=== PATIENT | male | born 1965 | race Caucasian/White ===

== ENCOUNTER 2019-03-14 15:57 | Emergency (ER) | payer MEDICARE, MEDICAID ==
[~2019-03-14] VITALS: Ht 177.8 cm; Wt 73.2 kg
[~2019-03-14 15:57] MED LIST: AMA100C PO; ARIP5TAB4 PO; CLON-528 PO; LEVO200T8 PO; LITH300T3 PO; MIRT45TA83 PO; PYRI100T2 PO
[2019-03-14 16:15] VITALS: BP 128/75
[2019-03-14] MEDS ORDERED: aspirin 325mg tablet PO ONE (16:50)
[2019-03-14 17:52] LABS: BASOPHILS # (AUTO) 0.1 X10'3 (0-0.2); BASOPHILS % (AUTO) 0.9 % (0-1); EOSINOPHILS # (AUTO) 0.3 X10'3 (0-0.9); HEMOGLOBIN 14.5 g/dl (14.0-17.9); LYMPHOCYTES # (AUTO) 2.1 X10'3 (1.1-4.8); MONOCYTES # (AUTO) 0.6 X10'3 (0-0.9); NEUTROPHILS # (AUTO) 8.2 X10'3 (1.8-7.7); NEUTROPHILS % (AUTO) 72.3 % (42-75)
[2019-03-14 17:54] LABS: EOSINOPHILS % (AUTO) 2.9 % (0-6); HEMATOCRIT 43.4 % (42.0-52.0); LYMPHOCYTES % (AUTO) 18.8 % (21-51); MEAN CORPUSCULAR HEMOGLOBIN 34.2 PG (27.0-31.0); MEAN CORPUSCULAR HGB CONC 33.5 g/dL (33.0-36.5); MEAN PLATELET VOLUME 8.3 FL (7.4-10.4); MONOCYTES % (AUTO) 5.1 % (2-12); PLATELET COUNT 203 X10'3 (140-440); RED BLOOD COUNT 4.26 X10'6 (4.70-6.10); RED CELL DISTRIBUTION WIDTH 13.5 % (11.5-14.5); WHITE BLOOD COUNT 11.4 X10'3 (4.5-11.0)
[2019-03-14 18:09] LABS: PARTIAL THROMBOPLASTIN TIME 24 SECONDS (22-32)
[2019-03-14 19:07] LABS: ALANINE AMINOTRANSFERASE 30 U/L (12-78); ALBUMIN 4.1 G/DL (3.4-5.0); ALBUMIN/GLOBULIN RATIO 1.3 (1.1-1.5); ALKALINE PHOSPHATASE 107 IU/L (46-116); ANION GAP 9 (8-16); ASPARTATE AMINO TRANSFERASE 11 U/L (10-37); BILIRUBIN,TOTAL 0.4 MG/DL (0.1-1.0); BLOOD UREA NITROGEN 14 MG/DL (7-18); BUN/CREATININE RATIO 13.6 (5.4-32.0); CALCIUM 9.7 MG/DL (8.5-10.1); CHLORIDE 106 MMOL/L (99-107); CREATININE 1.03 MG/DL (0.60-1.10); GLUCOSE 144 MG/DL (70-104); POTASSIUM 4.3 MMOL/L (3.5-5.1); SODIUM 140 MMOL/L (135-145); TOTAL CARBON DIOXIDE 24.8 MMOL/L (24-32); TOTAL PROTEIN 7.3 G/DL (6.4-8.2); eGFR 75 ML/MIN
== END 2019-03-14 19:41 | disposition home or self-care (01) ==
LOC: ER 15:58
DX: H53.8 Other visual disturbances (principal); E11.9 Type 2 diabetes mellitus without complications; E03.9 Hypothyroidism, unspecified
CPT/HCPCS: 36415; 70450; 80053; 85025; 85610; 85651; 85730; 99284

== ENCOUNTER 2020-06-27 13:23 | Emergency (ER) | payer MEDICARE, MEDICAID ==
[~2020-06-27] VITALS: Ht 175.3 cm; Wt 65.0 kg
[~2020-06-27 13:23] MED LIST changes: +ARIP5TAB14 PO; -ARIP5TAB4 PO; +PYRI100T10 PO; -PYRI100T2 PO
[2020-06-27 13:31] VITALS: BP 122/72
== END 2020-06-27 14:05 | disposition home or self-care (01) ==
LOC: ER 13:24
DX: H02.89 Other specified disorders of eyelid (principal); E11.9 Type 2 diabetes mellitus without complications; E03.9 Hypothyroidism, unspecified; F32.9 Major depressive disorder, single episode, unspecified; F20.9 Schizophrenia, unspecified; Z79.899 Other long term (current) drug therapy
CPT/HCPCS: 99281

== ENCOUNTER 2021-07-24 22:15 | Inpatient (IN) | payer BC, MEDICAID ==
[~2021-07-24] VITALS: Ht 177.8 cm; Wt 65.8 kg
[2021-07-25] MEDS ORDERED: AMIT-189 PO (08:05)
[2021-07-25] MEDS ORDERED: METF-438 PO (08:54)
[2021-07-25] MEDS ORDERED: RISP2TAB85 PO (08:54)
[2021-07-25] MEDS ORDERED: RISP1TAB98 PO (08:54)
[2021-07-25] MEDS ORDERED: ARIP20TA21 PO (08:54)
[2021-07-25] MEDS ORDERED: SITA100T15 PO (08:54)
[2021-07-25] MEDS ORDERED: VALB80CA PO (08:54)
[2021-07-25] MEDS ORDERED: CANA100T PO (08:54)
[2021-07-25] MEDS ORDERED: LEVO100T9 PO (08:55)
[2021-07-25] MEDS ORDERED: loperamide 2mg capsule PO PRN (09:55)
[2021-07-25] MEDS ORDERED: mag hydrox/Alum hydrox/simeth 30ml oral suspension PO PRN (09:55)
[2021-07-25] MEDS ORDERED: traZODone 50mg tablet PO PRN (09:55)
[2021-07-25] MEDS ORDERED: acetaminophen 325mg tablet PO PRN ×2 (09:55)
[2021-07-25 09:58] VITALS: BP 96/69
[2021-07-25] MEDS: magnesium hydroxide 30ml (MOM) UD suspension PO PRN (10:35)
[2021-07-25] MEDS ORDERED: risperiDONE 0.5mg tablet PO PRN (10:35)
--- NOTE | 2021-07-25 12:00 | NUR ---
Admission note: [facility] for [facility]/GD from [facility] at 0941. Pt has been experiencing bi-weekly psychotic episodes in which he becomes agitated, yells at neighbors, throws objects and gets in dads face. His sleep has been erratic. When EMS arrived, pt had broken a door, breaking things and screaming. Pts tox screen is negative. Pt has history of schizoaffective, hypothyroid, diabetic type 2. PT is cooperative with admission process and calm.
--- NOTE | 2021-07-25 14:19 | NUR ---
Pt attended group today. Today we constructed Vision Pages/Collages with inspiring words and pictures to inspire and create intention towards things hoped for in the future. Pt engaged well in the group and activity today. He and his neighbor got along well and talked while they worked on their page. It was a pleasant and friendly conversation about their pages. Pt was calm and compliant in the group. He assembled a page and then shared about it. He place pictures of "beautiful women and animals because he loves women and wolves". He spent much of the session talking about this and about his who he reported he one week ago. He was pleasant to work with. He was alert and oriented X4. His thought content displayed some possible delusional content and his thought process was linear for the most part. Nicki Luis LCSW
[2021-07-25 20:00] VITALS: BP 117/65
[2021-07-25] MEDS: VALBENAZINE 80 MG PO SCH (20:14)
[2021-07-25] MEDS: amitriptyline 50mg tablet PO SCH (20:14)
[2021-07-25] MEDS: metFORMIN 500mg tablet PO SCH (20:14)
--- NOTE | 2021-07-26 01:18 | NUR ---
Nursing progress note: Juan Smith Legal Hold: 5150 Report received from nurse with use of SBAR: Giorgi VIZCARRA Why they are here: Pt admitted to [facility] on a 5150 for DTO/GD from [facility] at 0941. Pt has been experiencing bi-weekly psychotic episodes in which he becomes agitated, yells at neighbors, throws objects and gets in dads face. His sleep has been erratic. When EMS arrived, pt had broken a door, breaking things and screaming. Pts tox screen is negative. Pt has history of schizoaffective, hypothyroid, diabetic type 2. PT is cooperative with admission process and calm. Assessment What has happened this shift: Received pt lying in bed resting. Pt calm and cooperative with care, denies all MH symptoms and stated that his eyes feel like they want to close. He states Im just going to lay down now and close my eyes to sleep. Pt did seem to be responding to internal stimuli as I was trying to give pt meds, pt was mumbling to himself. Pt had snacks and then went to bed. S/I, H/I: Pt denies. A/VH: Pt denies. Sleep: ADL's: Independent with prompting. Group attendance: No Were meds taken: Yes Any med S/E: None noted or reported Mental Status Exam Appearance: Clean, Older gentleman with green unit scrubs on Eye contact: Fair Behavior: Pleasant, cooperative Speech: Clear, soft, minimal. Mood: Calm, euthymic Affect: Blunted Thought process: Linear Thought Content: States his eye feel like they want to close Cognition: A/O Insight: Fair Judgment: Fair Interventions PRN's used: None Therapeutic interventions: 1:1 assessment, therapeutic communication, active listening, ensured contract for safety, medication administration/education/monitoring, fall prevention, encouragement in autonomy in ADLs, encouragement to attend groups and participate on the unit, provided positive reinforcment, and maintained Q15 minute safety checks. Restraints/seclusion/emergency medication: N/A Justification of Continued Inpatient Treatment: Pt requires medication management and monitoring in a safe and supportive environment.
[2021-07-26 08:00] VITALS: BP 101/63
[2021-07-26] MEDS: CANAGLIFLOZIN 100 MG PO SCH (08:00)
[2021-07-26] MEDS: metFORMIN 500mg tablet PO SCH ×2 (08:02→20:09)
[2021-07-26] MEDS: risperiDONE 2mg tablet PO SCH (08:02)
[2021-07-26] MEDS: linagliptin 5mg tablet PO SCH (08:02)
[2021-07-26] MEDS: levoTHYROXINE 100mcg tablet PO SCH (08:02)
[2021-07-26] MEDS: ARIPIPRAZOLE 10 MG TABLET PO SCH (08:02)
[2021-07-26 10:51] LABS: CHOL/HDL RATIO 1.9 (0.00-4.99); CHOLESTEROL 136 MG/DL (0-200); HDL CHOLESTEROL 73 MG/DL (35-60); LDL CHOLESTEROL 43 MG/DL (50-100); TRIGLYCERIDES 71 MG/DL (20-135)
[2021-07-26 11:01] LABS: HEMOGLOBIN A1C 7.6 % (4.5-6.2)
--- NOTE | 2021-07-26 14:32 | NUR ---
Nursing progress note: Legal Hold: 5150 Report received from nurse with use of SBAR: Giorgi VIZCARRA Why they are here: Pt admitted to [facility] on a 5150 for DTO/GD from [facility]. Pt has been experiencing bi-weekly psychotic episodes in which he becomes agitated, yells at neighbors, throws objects and gets in dads face. His sleep has been erratic. When EMS arrived, pt had broken a door, breaking things and screaming. Pt's tox screen is negative. Pt has history of schizoaffective, hypothyroid, diabetic type 2. PT is cooperative with admission process and calm. Assessment What has happened this shift: Pt was up for breakfast and cooperative with medications. Pt denies depression, anxiety, SI/HI/AH/VH. Pt reports that he is "just bored." Called pt's dad to ask him to bring in home meds Invokana and Ingrezza. Dad brought in all of the pt's medication bottles including the 2 home meds needed here. They were sent to the pharmacy. FS BG AC breakfast was 135, AC lunch was 138. Pt is on a carb controlled diet here. Pt states he prefers to be called "Edenilson." No aggressive or unsafe behaviors noted. S/I, H/I: Pt denies. A/VH: Pt denies. Sleep: Pt slept 8.25 hours last night per noc shift report, pt takes naps during the day. ADL's: Independent with prompting. Group attendance: Yes Were meds taken: Yes Any med S/E: None noted or reported Mental Status Exam Appearance: Older appearing man with short fernandez hair dressed in scrub pants. Eye contact: Fair Behavior: Cooperative, out of room for meals, unit activities, and groups. Speech: Clear, audible. Mood: Calm, bored. Affect: Appropriate to situation. Thought process: Linear Thought Content: States he's bored here. Cognition: A/O X 4 Insight: Fair Judgment: Fair Interventions PRN's used: None Therapeutic interventions: 1:1 assessment, therapeutic communication, active listening, ensured contract for safety, medication administration/education/monitoring, encouragement to attend groups and participate on the unit, provided positive reinforcement, and maintained Q15 minute safety checks. Restraints/seclusion/emergency medication: N/A Justification of Continued Inpatient Treatment: Pt requires crisis interruption with medication management and monitoring in a safe and supportive environment until stable. Pt lives with his dad.
[2021-07-26 19:00] VITALS: BP 114/68
[2021-07-26 20:00] VITALS: BP 114/68
[2021-07-26] MEDS: amitriptyline 50mg tablet PO SCH (20:09)
[2021-07-26] MEDS: VALBENAZINE 80 MG PO SCH (20:10)
--- NOTE | 2021-07-27 02:13 | NUR ---
Nursing progress note: Juan Legal Hold: 5150 Report received from nurse with use of SBAR: Giorgi VIZCARRA Why they are here: Pt admitted to [facility] on a 5150 for DTO/GD from [facility]. Pt has been experiencing bi-weekly psychotic episodes in which he becomes agitated, yells at neighbors, throws objects and gets in dads face. His sleep has been erratic. When EMS arrived, pt had broken a door, breaking things and screaming. Pt's tox screen is negative. Pt has history of schizoaffective, hypothyroid, diabetic type 2. PT is cooperative with admission process and calm. Assessment What has happened this shift: Pt was up pacing the unit then laid down in his bed to rest. Pt denies depression, anxiety, SI/HI/AH/VH. Pt states that he is bored and that he misses his terribly. Pt up for snacks and took all HS medication without issue, pt retired early to bed. S/I, H/I: Pt denies. A/VH: Pt denies. Sleep: ADL's: Independent with prompting. Group attendance: Yes Were meds taken: Yes Any med S/E: None noted or reported Mental Status Exam Appearance: Older appearing man with short fernandze hair dressed in scrub pants. Eye contact: Fair Behavior: Cooperative, calm Speech: Clear, audible. Mood: Calm, bored. Affect: Appropriate to situation. Thought process: Linear Thought Content: States he's bored here. Cognition: A/O X 4 Insight: Fair Judgment: Fair Interventions PRN's used: None Therapeutic interventions: 1:1 assessment, therapeutic communication, active listening, ensured contract for safety, medication administration/education/monitoring, encouragement to attend groups and participate on the unit, provided positive reinforcement, and maintained Q15 minute safety checks. Restraints/seclusion/emergency medication: N/A Justification of Continued Inpatient Treatment: Pt requires crisis interruption with medication management and monitoring in a safe and supportive environment until stable. Pt lives with his dad.
[2021-07-27] MEDS: levoTHYROXINE 100mcg tablet PO SCH (07:30)
[2021-07-27 07:31] VITALS: BP 114/73
[2021-07-27] MEDS: risperiDONE 2mg tablet PO SCH (08:15)
[2021-07-27] MEDS: metFORMIN 500mg tablet PO SCH ×2 (08:15→20:33)
[2021-07-27] MEDS: ARIPIPRAZOLE 10 MG TABLET PO SCH (08:15)
[2021-07-27] MEDS: linagliptin 5mg tablet PO SCH (08:15)
[2021-07-27] MEDS: CANAGLIFLOZIN 100 MG PO SCH (08:16)
--- NOTE | 2021-07-27 11:52 | NUR ---
Met with Juan to complete psychosocial assessment yesterday. Juan is a 55 y/o male who was placed on 5150 for danger to others and grave disability. He was brought to [facility] ED via ambulance after he called stating his heart was beating out of his chest. He had been walking around screaming, hallucinating, talking to himself and throwing things. Per Juan's watch case polisher at [facility], Juan has been having bi-weekly psychotic episodes in which he becomes very agitated, throws things, hallucinates, screams at the neighbors, and gets in his father's face. Tylor lives with his 88 y/o father, Chilango. Juan presented with grandiose and paranoid delusions. 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 He reported he earns billions of dollars a day off interest and that he engages in witchcraft and is paid for it. He also had somatic complaints regarding not being able to see. Whenever he stated this his eyelids were closed. Juan reported he lost his temper, was hearing voices, "people threatening me, threatening violence...I couldn't take it anymore. Juan has been diagnosed with Schizoaffective Disorder and currently receives treatment at [facility]. He has been hospitalized several times in the past. [facility] would like to see Juan go to [facility] upon discharge. Irrigator will complete [facility] referral. MSE: A/O: oriented x's 4 Appearance: 55 y/o male, decent hygiene Behavior: bizarre mouth movements, kept closing eyes Speech: WNL Mood: anxious Affect: congruent Thought Process: tangential Thought Content: paranoid, delusional, grandiose EILEEN Lundy Addendum: 07/27/21 at 1157 by Alejandra Fritz Amended: Links added.
--- NOTE | 2021-07-27 15:35 | NUR ---
Nursing Progress Note: Legal hold: 5150 Client on involuntary status for GD/DTO Report received from nurse with use of SBAR: Ruth Ann Springer RN Why are they here: Pt admitted to [facility] on a 5150 for DTO/GD from [facility]. Pt has been experiencing bi-weekly psychotic episodes in which he becomes agitated, yells at neighbors, throws objects and gets in dads face. His sleep has been erratic. When EMS arrived, pt had broken a door, breaking things and screaming. Pt's tox screen is negative. Pt has history of schizoaffective, hypothyroid, diabetic type 2. PT is cooperative with admission process and calm. Assessment What has happened this shift: Received pt. laying in bed awake at the beginning of the shift, this pattern chart writer introduced herself and attempted to establish rapport. Pt. continued to stare somewhat anxiously at this pattern chart writer and did not respond, he then proceeded to pull the bed covers over his head. Pt. was compliant with AM BS, and remains WNL. He attended breakfast in the Group Room with encouragement from staff, and afterwards returned immediately back to bed. Pt. continued to isolate in bed throughout much of the day, getting up to attend meals or watch TV for short intervals. He was not observed to be interacting with others. This pattern chart writer attempted to complete 1:1 later at bedside. Pt. again pulled the blankets up to cover half of his face. His speech is soft, pt. does not respond sometimes, and responds to closed-ended questions only with 1-2 word answers. He denies all MH s/s, and does not appear to be responding to internal stimuli. When questioned whether he is having a good day, pt. stated evasively, "I guess so." Will continue to monitor and encourage participation on the unit. This pattern chart writer spoke to pt's father with his permission. Pt's father expressed concern for patient, and reports pt. needs to be encouraged to get out of bed. Pt. also spoke to his father on the telephone. S/I, H/I: Denies A/VH: Pt. denies, does not appear internally preoccupied Sleep: Reported sleep hours are 9.5, and pt. naps intermittently throughout the day ADL's: Pt. requires some encouragement Group attendance: No Were meds taken: Yes Any med S/E: None Mental Status Exam Appearance: Hair somewhat disheveled r/t laying in bed, however is appropriately dressed Eye contact: Poor, pt covers his face with blanket or turns away Behavior: Cooperative, fatigued, anxious, guarded, and isolative Speech: Soft, pt.. does not respond sometimes, and responds to closed-ended questions only with 1-2 word answers Mood: Guarded and appears anxious Affect: Constricted Thought process: Poverty of thought with possible thought blocking Thought Content: Unable to assess Cognition: A&O X1 (Pt. would not respond other than to answer name) Insight: Poor Judgment: Poor Interventions PRN's used: None Therapeutic interventions: Introduced self and attempted to establish rapport, maintained a safe and therapeutic environment, ensured contract for safety, provided clear and simple instructions, encouraged participation on the unit, and maintained Q 15min safety checks. Restraints/seclusion/emergency medication: N/A Justification of Continued Inpatient Treatment: Per Dr. Sanders, pt. continues to to require interruption of current crisis, medication adjustments and a safe and supportive environment.
--- NOTE | 2021-07-27 15:48 | NUR ---
Noted pt with T2DM, well controlled with A1c 7.6%. DM education deferred at this time given patient's admitting dx. Will continue to follow. Addendum: 07/27/21 at [address] Amended: Links added.
[2021-07-27 19:00] VITALS: BP 106/58
[2021-07-27] MEDS: VALBENAZINE 80 MG PO SCH (20:33)
[2021-07-27] MEDS: amitriptyline 50mg tablet PO SCH (20:33)
--- NOTE | 2021-07-28 00:21 | NUR ---
Nursing Progress Note: Legal hold: 5150 Client on involuntary status for GD/DTO Report received from nurse with use of SBAR: CARMITA Rand Why are they here: Pt admitted to [facility] on a 5150 for DTO/GD from [facility]. Pt has been experiencing bi-weekly psychotic episodes in which he becomes agitated, yells at neighbors, throws objects and gets in dads face. His sleep has been erratic. When EMS arrived, pt had broken a door, breaking things and screaming. Pt's tox screen is negative. Pt has history of schizoaffective, hypothyroid, diabetic type 2. PT is cooperative with admission process and calm. Assessment What has happened this shift: Patient laying in bed awake at the beginning of shift. Patient is cooperative with care; compliant with medication. Reports no Nicotine patch. Patient denies SI, HI, A/VH; does not appear to be responding to IS and no delusional thought content expressed. Patient is short and presents irritable while screen writer assessing. Patient briefly observed watching TV with peers in recreation room. He participated in HS snack prior to bed; observed sleeping and does not appear to be having difficulty. S/I, H/I: Denies A/VH: Denies Sleep: Refer to sleep assessment ADL's: Independent Group attendance: NA Were meds taken: Yes Any med S/E: None observed or reported Mental Status Exam Appearance: Disheveled; wearing appropriate unit attire Eye contact: Avoidant Behavior: Cooperative but irritable Speech: Clear, audible, minimal Mood: Irritable Affect: Constricted Thought process: Poverty of thought with possible thought blocking Thought Content: Unable to assess Cognition: A&O X1 (Pt. would not respond other than to answer name) Insight: Poor Judgment: Poor Interventions PRN's used: None Therapeutic interventions: Introduced self and attempted to establish rapport, maintained a safe and therapeutic environment, ensured contract for safety, provided clear and simple instructions, encouraged participation on the unit, and maintained Q 15min safety checks. Restraints/seclusion/emergency medication: N/A Justification of Continued Inpatient Treatment: Per Dr. Sanders, pt. continues to to require interruption of current crisis, medication adjustments and a safe and supportive environment.
[2021-07-28 08:00] VITALS: BP 113/60
[2021-07-28] MEDS: metFORMIN 500mg tablet PO SCH ×2 (08:47→20:34)
[2021-07-28] MEDS: CANAGLIFLOZIN 100 MG PO SCH (08:47)
[2021-07-28] MEDS: ARIPIPRAZOLE 10 MG TABLET PO SCH (08:47)
[2021-07-28] MEDS: linagliptin 5mg tablet PO SCH (08:48)
[2021-07-28] MEDS: risperiDONE 2mg tablet PO SCH (08:48)
[2021-07-28] MEDS: levoTHYROXINE 100mcg tablet PO SCH (08:48)
[2021-07-28] MEDS: magnesium hydroxide 30ml (MOM) UD suspension PO PRN (12:26)
[2021-07-28] MEDS: LORazepam 1 MG tablet PO PRN (16:30)
--- NOTE | 2021-07-28 17:47 | NUR ---
Nursing Progress Note: Legal hold: 5250 Client on involuntary status for GD/DTO Report received from RN with use of SBAR: Why are they here: Pt admitted to [facility] on a 5150 for DTO/GD from [facility]. Pt has been experiencing bi-weekly psychotic episodes in which he becomes agitated, yells at neighbors, throws objects and gets in dads face. His sleep has been erratic. When EMS arrived, pt had broken a door, breaking things and screaming. Pt's tox screen is negative. Pt has history of schizoaffective, hypothyroid, diabetic type 2. PT is cooperative with admission process and calm. Assessment What has happened this shift: : Received Pt in bed sleeping at the beginning of the shift. Pt woke and took AM medications although agitated by the interaction. Pt pulled blanket over his head when this RN attempted to engage in assessment. Pt got up late for breakfast and ate when others had left the community room. Pt watched TV after breakfast and returned to bed. Pt became agitated in afternoon and was hitting himself in the head; it makes me feel better. Pt appears agitated and does not talk with staff. Pt willingly took Ativan 1mg and watched TV in Recreation room. S/I, H/I: Pt. denies A/VH: Pt. denies Sleep: Napped in AM and PM ADL's: Pt. requires some encouragement Group attendance: No Were meds taken: Yes Any med S/E: None Mental Status Exam Appearance: Hair disheveled, appropriately dressed Eye contact: Poor, covers face with blanket or turns away Behavior: Cooperative, fatigued, anxious, guarded, and isolative Speech: Coherent, short irritated responses Mood: Guarded, anxious, agitated Affect: Constricted Thought process: Poverty of thought with possible thought blocking Thought Content: Unable to assess Cognition: A&O X 3 Insight: Poor Judgment: Poor Interventions PRN's used: Ativan Therapeutic interventions: Introduced self and attempted to establish rapport, maintained a safe and therapeutic environment, ensured contract for safety, provided clear and simple instructions, encouraged participation on the unit, and maintained Q 15min safety checks. Restraints/seclusion/emergency medication: N/A Justification of Continued Inpatient Treatment: Per Dr. Sanders, pt. continues to to require interruption of current crisis, medication adjustments and a safe and supportive environment.
[2021-07-28 19:25] VITALS: BP 115/67
[2021-07-28] MEDS: amitriptyline 50mg tablet PO SCH (20:34)
[2021-07-28] MEDS: divalproex sod 250mg ER (24-hour) tablet PO SCH (20:34)
[2021-07-28] MEDS: VALBENAZINE 80 MG PO SCH (20:34)
--- NOTE | 2021-07-28 20:49 | NUR ---
Nursing Progress Note: Legal hold: 5250 Client on involuntary status for GD/DTO Report received from nurse with use of SBAR: CARMITA Rand Why are they here: Pt admitted to [place] [facility] on a 5150 for DTO/GD from [facility]. Pt has been experiencing bi-weekly psychotic episodes in which he becomes agitated, yells at neighbors, throws objects and gets in dads face. His sleep has been erratic. When EMS arrived, pt had broken a door, breaking things and screaming. Pt's tox screen is negative. Pt has history of schizoaffective, hypothyroid, diabetic type 2. PT is cooperative with admission process and calm. Assessment What has happened this shift: Patient observed finishing his dinner in the community room at the beginning of shift. Pleasant and cooperative with care; continues to appear irritable at times. Patient cooperative with all medication. He denies SI, HI, A/VH; does not appear to be responding to IS and no delusional thought content. He continues to provide minimal responses during assessment. Patient retired to bed promptly after dinner; patient observed sleeping and does not appear to be having difficulty. S/I, H/I: Denies A/VH: Denies Sleep: Refer to sleep assessment ADL's: Independent Group attendance: NA Were meds taken: Yes Any med S/E: None observed or reported Mental Status Exam Appearance: Disheveled; wearing appropriate unit attire Eye contact: Avoidant Behavior: Cooperative, some irritability, isolative Speech: Clear, audible, minimal Mood: Irritable Affect: Constricted Thought process: Poverty of thought with possible thought blocking Thought Content: Unable to assess Cognition: A&O X1 (Pt. would not respond other than to answer name) Insight: Poor Judgment: Poor Interventions PRN's used: None Therapeutic interventions: Introduced self and attempted to establish rapport, maintained a safe and therapeutic environment, ensured contract for safety, provided clear and simple instructions, encouraged participation on the unit, and maintained Q 15min safety checks. Restraints/seclusion/emergency medication: N/A Justification of Continued Inpatient Treatment: Per Dr. Sanders, pt. continues to to require interruption of current crisis, medication adjustments and a safe and supportive environment.
[2021-07-29 08:00] VITALS: BP 102/63
[2021-07-29] MEDS: metFORMIN 500mg tablet PO SCH ×2 (08:07→20:07)
[2021-07-29] MEDS: levoTHYROXINE 100mcg tablet PO SCH (08:07)
[2021-07-29] MEDS: ARIPIPRAZOLE 10 MG TABLET PO SCH (08:07)
[2021-07-29] MEDS: linagliptin 5mg tablet PO SCH (08:07)
[2021-07-29] MEDS: risperiDONE 2mg tablet PO SCH (08:07)
[2021-07-29] MEDS: CANAGLIFLOZIN 100 MG PO SCH (08:08)
[2021-07-29] MEDS: LORazepam 1 MG tablet PO PRN ×2 (12:31→20:07)
[2021-07-29] MEDS: OLANZapine 2.5MG tablet PO PRN ×2 (13:24→17:26)
--- NOTE | 2021-07-29 16:20 | NUR ---
Nursing Progress Note: Legal hold: 5250 Client on involuntary status for GD/DTO Report received from RNChalino with use of SBAR: Why are they here: Pt admitted to [place] [facility] on a 5150 for DTO/GD from [facility]. Pt has been experiencing bi-weekly psychotic episodes in which he becomes agitated, yells at neighbors, throws objects and gets in dads face. His sleep has been erratic. When EMS arrived, pt had broken a door, breaking things and screaming. Pt's tox screen is negative. Pt has history of schizoaffective, hypothyroid, diabetic type 2. PT is cooperative with admission process and calm. Assessment What has happened this shift: patient resting quietly in bed at start of shift. Eats meals in community room but does not interact with peers. Isolates in his room in bed with cover pulled over his head. Just prior to lunch patient in his room yelling to himself, Fuck you, you mother fucking faggot! Yells at staff, What do you care you mother fucker! You dont care!. PRN Ativan given which does not appear effective. Appears to be responding to internal stimuli. States Go ahead and beat the shit out of me motherfucker! when alone in room. Also states in a more depressed tone. Oh god oh please just stop it in there. Noted hitting himself in his head with open hands. Difficult to redirect. Laughs loudly while alone in his room. Provider notified. New order for Zyprexa PRN which was given and appears helpful. Occasional outbursts of yelling noted. Movements are aggressive/ abrupt such as exaggerated swinging of arms when walking, pushing chair back hard when standing up so it hits other peoples chairs. S/I, H/I: Denies A/VH: Appears to be responding to internal stimuli. Sleep: 10 hours per NOC. Naps on and off throughout day ADL's: Pt. requires some encouragement Group attendance: No Were meds taken: Yes Any med S/E: None noted or reported Mental Status Exam Appearance: Hair disheveled, appropriately dressed Eye contact: Poor, covers face with blanket or turns away Behavior: Cooperative, anxious/ agitated, guarded, and isolative Speech: Coherent, short irritated responses Mood: States, I dont know. Appears anxious, labile. Affect: congruent with mood Thought process: Poverty of thought with possible thought blocking Thought Content: Unable to assess. Irritable and responds angrily, I dont know! Cognition: A&O X 2/3, difficult to assess. Oriented to person and place Insight: Poor Judgment: Poor Interventions PRN's used: Ativan, Zyprexa Therapeutic interventions: Introduced self and attempted to establish rapport, maintained a safe and therapeutic environment, ensured contract for safety, provided clear and simple instructions, encouraged participation on the unit, and maintained Q 15min safety checks. Restraints/seclusion/emergency medication: N/A Justification of Continued Inpatient Treatment: Per Dr. Sanders, pt. continues to to require interruption of current crisis, medication adjustments and a safe and supportive environment.
[2021-07-29] MEDS ORDERED: risperiDONE 0.5mg tablet PO PRN (19:00)
[2021-07-29 19:25] VITALS: BP 119/66
[2021-07-29] MEDS ORDERED: risperiDONE 0.5mg tablet PO ONE (20:00)
[2021-07-29] MEDS: divalproex sod 250mg ER (24-hour) tablet PO SCH (20:07)
[2021-07-29] MEDS: amitriptyline 50mg tablet PO SCH (20:07)
[2021-07-29] MEDS: VALBENAZINE 80 MG PO SCH (20:07)
--- NOTE | 2021-07-29 23:41 | NUR ---
Nursing Progress Note: Legal hold: 5250 Client on involuntary status for GD/DTO Report received from nurse with use of SBAR: CARMITA Rand Why are they here: Pt admitted to [facility] on a 5150 for DTO/GD from [facility]. Pt has been experiencing bi-weekly psychotic episodes in which he becomes agitated, yells at neighbors, throws objects and gets in dads face. His sleep has been erratic. When EMS arrived, pt had broken a door, breaking things and screaming. Pt's tox screen is negative. Pt has history of schizoaffective, hypothyroid, diabetic type 2. PT is cooperative with admission process and calm. Assessment What has happened this shift: Patient observed watching TV with peers in the recreation room; Pleasant and cooperative at the beginning of shift but later irritable and impulsive; compliant with medication. PRN Ativan provided with positive effect. Patient observed responding to IS; patient would not talk to hand sign writer while he was having outbursts. Patient continuously asked, "what do you care?" Patient did not participate in HS snack; observed sleeping and does not appear to be having difficulty. S/I, H/I: Denies A/VH: Denies Sleep: Refer to sleep assessment ADL's: Independent Group attendance: NA Were meds taken: Yes Any med S/E: None observed or reported Mental Status Exam Appearance: Disheveled; wearing appropriate unit attire Eye contact: Avoidant Behavior: Labile, selective with cooperation Speech: Clear, audible, minimal Mood: Labile Affect: Constricted Thought process: Poverty of thought with possible thought blocking Thought Content: Unable to assess Cognition: A&O X1 (Pt. would not respond other than to answer name) Insight: Poor Judgment: Poor Interventions PRN's used: Ativan Therapeutic interventions: Introduced self and attempted to establish rapport, maintained a safe and therapeutic environment, ensured contract for safety, provided clear and simple instructions, encouraged participation on the unit, and maintained Q 15min safety checks. Restraints/seclusion/emergency medication: N/A Justification of Continued Inpatient Treatment: Per Dr. Sanders, pt. continues to to require interruption of current crisis, medication adjustments and a safe and supportive environment.
[2021-07-30 08:00] VITALS: BP 111/64
[2021-07-30] MEDS: linagliptin 5mg tablet PO SCH (08:07)
[2021-07-30] MEDS: ARIPIPRAZOLE 10 MG TABLET PO SCH (08:07)
[2021-07-30] MEDS: metFORMIN 500mg tablet PO SCH ×2 (08:07→20:14)
[2021-07-30] MEDS: CANAGLIFLOZIN 100 MG PO SCH (08:07)
[2021-07-30] MEDS: levoTHYROXINE 100mcg tablet PO SCH (08:08)
[2021-07-30] MEDS: risperiDONE 2mg tablet PO SCH ×2 (08:08→20:14)
[2021-07-30] MEDS: OLANZapine 2.5MG tablet PO PRN (08:08)
[2021-07-30 10:03] LABS: BASOPHILS % (AUTO) 0.7 % (0-1); EOSINOPHILS # (AUTO) 0.1 X10'3 (0-0.9); EOSINOPHILS % (AUTO) 2.4 % (0-6); HEMATOCRIT 41.4 % (42.0-52.0); HEMOGLOBIN 13.7 g/dl (14.0-17.9); LYMPHOCYTES # (AUTO) 1.4 X10'3 (1.1-4.8); LYMPHOCYTES % (AUTO) 22.7 % (21-51); MEAN CORPUSCULAR HEMOGLOBIN 30.1 PG (27.0-31.0); MEAN CORPUSCULAR HGB CONC 33.1 g/dL (33.0-36.5); MEAN CORPUSCULAR VOLUME 90.8 FL (78-98); MEAN PLATELET VOLUME 7.7 FL (7.4-10.4); MONOCYTES # (AUTO) 0.3 X10'3 (0-0.9); MONOCYTES % (AUTO) 4.2 % (2-12); NEUTROPHILS # (AUTO) 4.5 X10'3 (1.8-7.7); PLATELET COUNT 187 X10'3 (140-440); RED BLOOD COUNT 4.56 X10'6 (4.70-6.10); RED CELL DISTRIBUTION WIDTH 15.5 % (11.5-14.5); WHITE BLOOD COUNT 6.4 X10'3 (4.5-11.0)
[2021-07-30 10:30] LABS: ALANINE AMINOTRANSFERASE 24 U/L (12-78); ALBUMIN 3.8 G/DL (3.4-5.0); ALBUMIN/GLOBULIN RATIO 1.2 (1.1-1.5); ALKALINE PHOSPHATASE 112 IU/L (46-116); ANION GAP 13 (8-16); ASPARTATE AMINO TRANSFERASE 19 U/L (10-37); BILIRUBIN,TOTAL 0.7 MG/DL (0.1-1.0); BLOOD UREA NITROGEN 15 MG/DL (7-18); BUN/CREATININE RATIO 16.1 (5.4-32.0); CALCIUM 8.8 MG/DL (8.5-10.1); CHLORIDE 106 MMOL/L (99-107); CREATININE 0.93 MG/DL (0.60-1.10); GLUCOSE 74 MG/DL (70-104); MAGNESIUM 2.2 MG/DL (1.5-2.4); PHOSPHORUS 3.4 MG/DL (2.3-4.5); POTASSIUM 4.3 MMOL/L (3.5-5.1); SODIUM 141 MMOL/L (135-145); TOTAL CARBON DIOXIDE 21.9 MMOL/L (24-32); TOTAL PROTEIN 6.9 G/DL (6.4-8.2); eGFR 84 ML/MIN
[2021-07-30] MEDS ORDERED: OLANZapine 5mg rapidly disint. tablet PO ONE (12:15)
[2021-07-30] MEDS: LORazepam 1 MG tablet PO PRN (12:47)
--- NOTE | 2021-07-30 13:17 | NUR ---
PROBABLE CAUSE HEARING Patients Name: Juan Salas Admission Date: 07/25/2021 Date of 5150: 07/24/2021 Written by: [facility] Criteria: DTODUDLEY Summary of Facts: Edenilson experiences bi-weekly psychotic episodes in which he becomes agitated, yells at neighbors, throws objects and gets in dads face. His sleep has also been erratic Date of 5250: 07/28/2021 Written by: Dr. Sanders Criteria: DUDLEY RAWLS Summary of Facts: Per providers note on 07/28/21 - Agitation gradually worsening. Having AH they threatened to blow my head off with a gun, sounded like real people. He has been destroying property, slamming doors, punching holds into garcia, throwing objects, yelling at neighbors, getting into his elderly fathers face and not sleeping. Patient is still very agitated, guarded.. No third green party assistance from his father at this time Diagnosis: Schizoaffective disorder, bipolar type Behavior during past 48 HRS: Provider note from 07/28/21: Patient lying in bed yelling and screaming. He has been hitting himself in the head. Responding to the voices inside his head. When I talked with him and asked if he was having the AH again he says angrily 'Yes I am!'. Told patient we would get him some medication to help. 'Fucking fine with me!' When asked if he is depressed. he says 'I don't know.' He says. 'suffering anyway.' yells out 'mother fucking shit' 'my own father doesn't give a shit!' 'you don't give a shit about me. I don't give a shit about you!' then he starts laughing hysterically over and over again. FOOD: Refused all meals since 07/29 at lunch time SLEEPIN.25 ADLS: INTERMEDIATE: 30 day notice from nursing home MEDICATION DOSAGE FREQUENCY DURATION Ingrezza 80 mg p.o. nightly Risperidone 2 mg p.o. every morning Risperidone 3 mg p.o. nightly Depakote ER 500 mg po q hs Lorazepam 1 mg p.o. every 6 hours as needed - yesterday Aripiprazole 20 mg in the morning Amitriptyline 50 mg p.o. nightly Olanzapine 5 mg p.o. every 4 hours as needed agitation. Last used today
--- NOTE | 2021-07-30 14:30 | NUR ---
Initial: Pt admit DX schizoaffective d/o and tardive dyskinesia w/ hx DM A1C 7.6 takes metformin 100mg BID and Januvia daily per EMR. PO 100% mostly carb controlled meals until lunch yesterday 07/29 started refusing past 4 meals. Pt refusing meals not participating in snacks though is drinking CHO-containing liquids and fluids per EMR. Currently not meeting needs given refusals. IF refusals persist may benefit from ONS since consuming liquids. LBM 07/28. Will continue to monitor for PO trends and ONS needs. Rec: 1. continue carb controlled diet; encourage PO 2. IF PO refusals persist; consider Ensure Enlive TIDWM since is drinking liquid kcals per EMR 3. routine bowel care 4. weekly wts Addendum: 07/30/21 at [address] Amended: Links added.
--- NOTE | 2021-07-30 16:15 | NUR ---
Nursing Progress Note: Legal hold: 5250 Client on involuntary status for GD/DTO Report received from RNRuthy with use of SBAR: Why are they here: Pt admitted to [facility] for [facility] on a 5150 for DTO/GD from [facility]. Pt has been experiencing bi-weekly psychotic episodes in which he becomes agitated, yells at neighbors, throws objects and gets in dads face. His sleep has been erratic. When EMS arrived, pt had broken a door, breaking things and screaming. Pt's tox screen is negative. Pt has history of schizoaffective, hypothyroid, diabetic type 2. PT is cooperative with admission process and calm. Assessment What has happened this shift: Pt goes to breakfast and only drinks fluids. Pt refuses to eat anything. Pt states he will eat when he gets home. Offered pt anything else to eat and pt states "I dont want a damn thing from you." Pt then laughs. Pt also screaming to shove the tray "Up your ass". Pt states "I dont want breakfast, no lunch, no snacks, not a damn thing." At snack time pt had a milk. Pt again starts hitting himself and screatching loudly. Pt given more Zyprexa and Ativan PO and moved to a private room due to scaring his roommate. Pt feels safer after the move. S/I, H/I: Denies A/VH: Appears to be responding to internal stimuli. Sleep: 10 hours per NOC. Naps on and off throughout day ADL's: Pt. requires some encouragement Group attendance: No Were meds taken: Yes Any med S/E: None noted or reported Mental Status Exam Appearance: Hair disheveled, appropriately dressed Eye contact: Poor, covers face with blanket or turns away Behavior: Cooperative, anxious/ agitated, guarded, and isolative Speech: Coherent, short irritated responses Mood: anxious, labile. Affect: congruent with mood Thought process: Poverty of thought with possible thought blocking Thought Content: Unable to assess. Irritable and responds angrily, I dont know! Cognition: A&O X 2/3, difficult to assess. Oriented to person and place Insight: Poor Judgment: Poor Interventions PRN's used: Ativan, Zyprexa Therapeutic interventions: Introduced self and attempted to establish rapport, maintained a safe and therapeutic environment, ensured contract for safety, provided clear and simple instructions, encouraged participation on the unit, and maintained Q 15min safety checks. Restraints/seclusion/emergency medication: N/A Justification of Continued Inpatient Treatment: Per Dr. Snaders, pt. continues to to require interruption of current crisis, medication adjustments and a safe and supportive environment.
[2021-07-30] MEDS: divalproex sod 250mg ER (24-hour) tablet PO SCH (20:14)
[2021-07-30] MEDS: amitriptyline 50mg tablet PO SCH (20:14)
[2021-07-30] MEDS: VALBENAZINE 80 MG PO SCH (20:15)
[2021-07-30] MEDS ORDERED: risperiDONE 0.5mg tablet PO SCH (21:00)
--- NOTE | 2021-07-30 22:33 | NUR ---
Nursing Progress Note: Legal hold: 5250 Client on involuntary status for GD/DTO Report received from nurse with use of SBAR: CARMITA Rand Why are they here: Pt admitted to [facility] for [facility] health on a 5150 for DTO/GD from [facility]. Pt has been experiencing bi-weekly psychotic episodes in which he becomes agitated, yells at neighbors, throws objects and gets in dads face. His sleep has been erratic. When EMS arrived, pt had broken a door, breaking things and screaming. Pt's tox screen is negative. Pt has history of schizoaffective, hypothyroid, diabetic type 2. PT is cooperative with admission process and calm. Assessment What has happened this shift: Patient observed laying in his bed listening to headphones at the beginning of shift. Patient selectively cooperating with care; compliant with all medication. Patient remains irritable but no outbursts presented this shift. Patient appears to be internally preoccupied. He ate dinner in the community room and promptly returned to his bed; observed sleeping and does not appear to be having difficulty. S/I, H/I: Denies A/VH: Appear preoccupied Sleep: Refer to sleep assessment ADL's: Independent Group attendance: NA Were meds taken: Yes Any med S/E: None observed or reported Mental Status Exam Appearance: Disheveled; wearing appropriate unit attire Eye contact: Avoidant Behavior: Labile, selective with cooperation Speech: Clear, audible, minimal Mood: Labile Affect: Constricted Thought process: Poverty of thought with possible thought blocking Thought Content: Unable to assess Cognition: A&O X1 (Pt. would not respond other than to answer name) Insight: Poor Judgment: Poor Interventions PRN's used: None Therapeutic interventions: Introduced self and attempted to establish rapport, maintained a safe and therapeutic environment, ensured contract for safety, provided clear and simple instructions, encouraged participation on the unit, and maintained Q 15min safety checks. Restraints/seclusion/emergency medication: N/A Justification of Continued Inpatient Treatment: Per Dr. Sanders, pt. continues to to require interruption of current crisis, medication adjustments and a safe and supportive environment.
[2021-07-31] MEDS: CANAGLIFLOZIN 100 MG PO SCH (08:00)
[2021-07-31] MEDS: risperiDONE 2mg tablet PO SCH ×2 (08:01→20:12)
[2021-07-31] MEDS: linagliptin 5mg tablet PO SCH (08:01)
[2021-07-31] MEDS: metFORMIN 500mg tablet PO SCH ×2 (08:01→20:13)
[2021-07-31] MEDS: ARIPIPRAZOLE 10 MG TABLET PO SCH (08:01)
[2021-07-31] MEDS: levoTHYROXINE 100mcg tablet PO SCH (08:01)
[2021-07-31 08:11] VITALS: BP 110/64
--- NOTE | 2021-07-31 10:14 | NUR ---
[facility] Com[facility] and [facility] in the event that Juan is willing to go when he is ready for discharge. EILEEN Lundy
--- NOTE | 2021-07-31 11:53 | NUR ---
Nursing Progress Note: Juan Legal hold: 5250 Client on involuntary status for GD/DTO Report received from nurse with use of SBAR: CARMITA Rand Why are they here: Pt admitted to [facility] for [facility] health on a 5150 for DTO/GD from [facility]. Pt has been experiencing bi-weekly psychotic episodes in which he becomes agitated, yells at neighbors, throws objects and gets in dads face. His sleep has been erratic. When EMS arrived, pt had broken a door, breaking things and screaming. Pt's tox screen is negative. Pt has history of schizoaffective, hypothyroid, diabetic type 2. PT is cooperative with admission process and calm. Assessment What has happened this shift: Patient is sleeping at change of shift. Woke pt up for accucheck and medication administration. Pt denied MH symptoms and states he is doing OK. Pt got up for breakfast and then went back to bed where he remained for the most part of the AM. S/I, H/I: Denies A/VH: Appear preoccupied Sleep: ADL's: Independent Group attendance: NA Were meds taken: Yes Any med S/E: None observed or reported Mental Status Exam Appearance: Disheveled; wearing appropriate unit attire Eye contact: Avoidant Behavior: Labile, selective with cooperation Speech: Clear, audible, minimal Mood: Labile Affect: Constricted Thought process: Poverty of thought with possible thought blocking Thought Content: Unable to assess Cognition: A&O X1 (Pt. would not respond other than to answer name) Insight: Poor Judgment: Poor Interventions PRN's used: None Therapeutic interventions: Introduced self and attempted to establish rapport, maintained a safe and therapeutic environment, ensured contract for safety, provided clear and simple instructions, encouraged participation on the unit, and maintained Q 15min safety checks. Restraints/seclusion/emergency medication: N/A Justification of Continued Inpatient Treatment: Per Dr. Sanders, pt. continues to to require interruption of current crisis, medication adjustments and a safe and supportive environment.
[2021-07-31] MEDS: VALBENAZINE 80 MG PO SCH (20:12)
[2021-07-31] MEDS: amitriptyline 50mg tablet PO SCH (20:12)
[2021-07-31] MEDS: divalproex sod 250mg ER (24-hour) tablet PO SCH (20:13)
--- NOTE | 2021-07-31 23:02 | NUR ---
Nursing Progress Note: Legal hold: 5250 Client on involuntary status for GD/DTO Report received from nurse with use of SBAR: CARMITA Rand Why are they here: Pt admitted to [facility] for [facility] on a 5150 for DTO/GD from [facility]. Pt has been experiencing bi-weekly psychotic episodes in which he becomes agitated, yells at neighbors, throws objects and gets in dads face. His sleep has been erratic. When EMS arrived, pt had broken a door, breaking things and screaming. Pt's tox screen is negative. Pt has history of schizoaffective, hypothyroid, diabetic type 2. PT is cooperative with admission process and calm. Assessment What has happened this shift: Patient observed laying in bed at the beginning of shift. Remains selective with cooperating with care; continues to appear irritable when automotive service writer attempts assessments. Patient reports feeling "alright" while denying MH symptoms. He is compliant with all medication. Patient showered, watched TV and participated in HS snack prior to bed; observed sleeping and does not appear to be having difficulty. S/I, H/I: Denies A/VH: Appears preoccupied Sleep: Refer to sleep assessment ADL's: Independent Group attendance: NA Were meds taken: Yes Any med S/E: None observed or reported Mental Status Exam Appearance: Disheveled; wearing appropriate unit attire Eye contact: Avoidant Behavior: Labile, selective with cooperation Speech: Clear, audible, minimal Mood: Irritable Affect: Constricted Thought process: Poverty of thought with possible thought blocking Thought Content: Unable to assess Cognition: A&O X1 (Pt. would not respond other than to answer name) Insight: Poor Judgment: Poor Interventions PRN's used: None Therapeutic interventions: Introduced self and attempted to establish rapport, maintained a safe and therapeutic environment, ensured contract for safety, provided clear and simple instructions, encouraged participation on the unit, and maintained Q 15min safety checks. Restraints/seclusion/emergency medication: N/A Justification of Continued Inpatient Treatment: Per Dr. Sanders, pt. continues to to require interruption of current crisis, medication adjustments and a safe and supportive environment.
[2021-08-01] MEDS: levoTHYROXINE 100mcg tablet PO SCH (07:08)
[2021-08-01] MEDS: metFORMIN 500mg tablet PO SCH ×2 (07:31→20:09)
[2021-08-01] MEDS: linagliptin 5mg tablet PO SCH (07:31)
[2021-08-01] MEDS: ARIPIPRAZOLE 10 MG TABLET PO SCH (07:32)
[2021-08-01] MEDS: CANAGLIFLOZIN 100 MG PO SCH (07:32)
[2021-08-01] MEDS: risperiDONE 2mg tablet PO SCH ×2 (07:32→20:09)
[2021-08-01 08:00] VITALS: BP 131/69
--- NOTE | 2021-08-01 14:15 | NUR ---
Nursing Progress Note: Legal hold: 5250 Client on involuntary status for GD/DTO Report received from RNGiorgi with use of SBAR: Why are they here: Pt admitted to [facility] for [facility] health on a 5150 for DTO/GD from [facility]. Pt has been experiencing bi-weekly psychotic episodes in which he becomes agitated, yells at neighbors, throws objects and gets in dads face. His sleep has been erratic. When EMS arrived, pt had broken a door, breaking things and screaming. Pt's tox screen is negative. Pt has history of schizoaffective, hypothyroid, diabetic type 2. PT is cooperative with admission process and calm. Assessment What has happened this shift: Pt's blood sugar this morning before breakfast was 103. Pt gets up for meals. He ate 100% of breakfast and lunch. He was cooperative with his weekly weight. Pt is mostly isolative to self. He spends most of the time in his room. He enjoys listening to the radio headphones. When asked pt if he knew what the date was he replied, "I have no idea." Upon further questioning, he did actually know it was July 2021 but had lost track of time here in the hospital. Pt denied depression, anxiety, SI/HI/AH/VH. Pt did not have any outbursts or episodes of aggression or self-injurious behaviors today. S/I, H/I: Pt denies A/VH: Pt denies, he did not appear to be responding to internal stimuli. Sleep: Pt slept 9.5 hours last night per noc shift report, pt napped after breakfast. ADL's: Independent Group attendance: No Were meds taken: Yes Any med S/E: None noted or reported Mental Status Exam Appearance: Older appearing man with short greying hair and facial stubble dressed in clean, green hospital scrubs. Eye contact: Fair Behavior: Cooperative, out of room for meals, mostly isolative to self, listens to radio headphones. Speech: Clear, audible, minimal Mood: Mild irritability Affect: Irritable, guarded Thought process: Linear Thought Content: He has no idea what the date is. Cognition: A&O X 3 Insight: Poor Judgment: Poor Interventions PRN's used: None Therapeutic interventions: 1:1 assessment, therapeutic communication, encouraged pt to express his thoughts and feelings,maintained a safe and therapeutic environment, ensured contract for safety, provided clear and simple instructions, encouraged participation on the unit, reality orientation, distraction, and maintained Q 15 minute safety checks. Restraints/seclusion/emergency medication: N/A Justification of Continued Inpatient Treatment: Per Dr. Sanders, pt. continues to to require interruption of current crisis, medication adjustments and a safe and supportive environment.
[2021-08-01 19:43] VITALS: BP 109/67
[2021-08-01] MEDS: divalproex sod 250mg ER (24-hour) tablet PO SCH (20:09)
[2021-08-01] MEDS: amitriptyline 50mg tablet PO SCH (20:09)
[2021-08-01] MEDS: VALBENAZINE 80 MG PO SCH (20:09)
--- NOTE | 2021-08-01 22:30 | NUR ---
Nursing Progress Note: Legal hold: 5250 Client on involuntary status for GD/DTO Report received from nurse with use of SBAR: CARMITA Rand Why are they here: Pt admitted to [facility] for [facility] on a 5150 for DTO/GD from [facility]. Pt has been experiencing bi-weekly psychotic episodes in which he becomes agitated, yells at neighbors, throws objects and gets in dads face. His sleep has been erratic. When EMS arrived, pt had broken a door, breaking things and screaming. Pt's tox screen is negative. Pt has history of schizoaffective, hypothyroid, diabetic type 2. PT is cooperative with admission process and calm. Assessment What has happened this shift: Patient observed listening to music in his room at the beginning of shift. Cooperative with care; continues to appear irritable when ad copy writer talks to him. Patient is compliant with all medication. He denies SI, HI, A/VH. Patient participated in HS snack and observed watching TV prior to bed; observed sleeping and does not appear to be having difficulty. S/I, H/I: Denies A/VH: Denies Sleep: Refer to sleep assessment ADL's: Independent Group attendance: NA Were meds taken: Yes Any med S/E: None observed or reported Mental Status Exam Appearance: Disheveled; wearing appropriate unit attire Eye contact: Fair Behavior: Cooperative, isolative Speech: Clear, audible, minimal Mood: Irritable Affect: Constricted Thought process: Poverty of thought with possible thought blocking Thought Content: Unable to assess Cognition: A&O X1 (Pt. would not respond other than to answer name) Insight: Poor Judgment: Poor Interventions PRN's used: None Therapeutic interventions: Introduced self and attempted to establish rapport, maintained a safe and therapeutic environment, ensured contract for safety, provided clear and simple instructions, encouraged participation on the unit, and maintained Q 15min safety checks. Restraints/seclusion/emergency medication: N/A Justification of Continued Inpatient Treatment: Per Dr. Sandres, pt. continues to to require interruption of current crisis, medication adjustments and a safe and supportive environment.
[2021-08-02] MEDS: levoTHYROXINE 100mcg tablet PO SCH (07:03)
[2021-08-02 07:52] VITALS: BP 107/68
[2021-08-02] MEDS: risperiDONE 2mg tablet PO SCH ×2 (07:58→20:46)
[2021-08-02] MEDS: aripiprazole 5mg tablet PO SCH (07:58)
[2021-08-02] MEDS: metFORMIN 500mg tablet PO SCH ×2 (07:58→20:46)
[2021-08-02] MEDS: linagliptin 5mg tablet PO SCH (07:58)
[2021-08-02] MEDS: CANAGLIFLOZIN 100 MG PO SCH (07:59)
[2021-08-02] MEDS ORDERED: ARIPIPRAZOLE 10 MG TABLET PO SCH (08:00)
--- NOTE | 2021-08-02 13:51 | NUR ---
Nursing Progress Note: Legal hold: 5250 Client on involuntary status for GD/DTO Report received from RNGiorgi with use of SBAR: Why are they here: Pt admitted to [facility] for [facility] on a 5150 for DTO/GD from [facility]. Pt has been experiencing bi-weekly psychotic episodes in which he becomes agitated, yells at neighbors, throws objects and gets in dads face. His sleep has been erratic. When EMS arrived, pt had broken a door, breaking things and screaming. Pt's tox screen is negative. Pt has history of schizoaffective, hypothyroid, diabetic type 2. PT is cooperative with admission process and calm. Assessment What has happened this shift: Pt was up for breakfast. He was cooperative with medications and unit procedures. Pt remains mostly isolative to self and room. Pt denies depression, SI/HI/AH/VH. Pt's FS BG this morning before breakfast was 94. Pt at 100% of breakfast and 75% of lunch. No verbal outbursts,self-injurious, or aggressive behaviors this shift. Abilify was decreased to 5 mg today. S/I, H/I: Pt denies A/VH: Pt denies, he did not appear to be responding to internal stimuli. Sleep: Pt slept 9 hours last night per noc shift report, pt naps after meals. ADL's: Independent Group attendance: No Were meds taken: Yes Any med S/E: None noted or reported Mental Status Exam Appearance: Older appearing man with short greying hair and facial stubble dressed in clean, green hospital scrubs. Eye contact: Fair Behavior: Cooperative, out of room for meals, mostly isolative to self, listens to radio headphones. Speech: Clear, audible, minimal Mood: Mild irritability Affect: Irritable, guarded Thought process: Linear Thought Content: He is fine. Cognition: A&O X 3 Insight: Poor Judgment: Poor Interventions PRN's used: None Therapeutic interventions: 1:1 assessment, therapeutic communication, encouraged pt to express his thoughts and feelings,maintained a safe and therapeutic environment, ensured contract for safety, provided clear and simple instructions, encouraged participation on the unit, reality orientation, distraction, and maintained Q 15 minute safety checks. Restraints/seclusion/emergency medication: N/A Justification of Continued Inpatient Treatment: Per Dr. Sanders, pt. continues to to require interruption of current crisis, medication adjustments and a safe and supportive environment.
[2021-08-02] MEDS ORDERED: NICOTINE POLACRILEX 2 MG LOZENGE BC PRN (19:20)
[2021-08-02 20:00] VITALS: BP 118/73
[2021-08-02] MEDS: divalproex sod 250mg ER (24-hour) tablet PO SCH (20:46)
[2021-08-02] MEDS: amitriptyline 50mg tablet PO SCH (20:46)
[2021-08-02] MEDS: VALBENAZINE 80 MG PO SCH (21:00)
--- NOTE | 2021-08-03 00:48 | NUR ---
leona Progress Note: Legal hold: 5250 Client on involuntary status for GD/DTO Report received from nurse with use of SBAR: CARMITA Alba Why are they here: Pt admitted to [place] for Behavioral health on a 5150 for DTO/GD from [facility]. Pt has been experiencing bi-weekly psychotic episodes in which he becomes agitated, yells at neighbors, throws objects and gets in dads face. His sleep has been erratic. When EMS arrived, pt had broken a door, breaking things and screaming. Pt's tox screen is negative. Pt has history of schizoaffective, hypothyroid, diabetic type 2. PT is cooperative with admission process and calm. Assessment What has happened this shift: Patient observed listening to music in his room at the beginning of shift. Cooperative with care; continues to appear irritable when staff writer talks to him. Patient is compliant with all medication. He denies SI, HI, A/VH. Patient gives one word answers and has no forward thought process with this staff writer. Patient participated in HS snack and was observed sleeping and does not appear to be having difficulty. S/I, H/I: Denies A/VH: Denies Sleep: Refer to sleep assessment ADL's: Independent Group attendance: NA Were meds taken: Yes Any med S/E: None observed or reported Mental Status Exam Appearance: Disheveled; wearing appropriate unit attire Eye contact: Fair Behavior: Cooperative, isolative Speech: Clear, audible, minimal Mood: Irritable Affect: Constricted Thought process: Poverty of thought with possible thought blocking Thought Content: Unable to assess Cognition: A&O X1 (Pt. would not respond other than to answer name) Insight: Poor Judgment: Poor Interventions PRN's used: None Therapeutic interventions: Introduced self and attempted to establish rapport, maintained a safe and therapeutic environment, ensured contract for safety, provided clear and simple instructions, encouraged participation on the unit, and maintained Q 15min safety checks. Restraints/seclusion/emergency medication: N/A Justification of Continued Inpatient Treatment:Patient is unable to participate in a safe plan of discharge at this point of treatment. Patient needs more time in this controlled environment and medication adjustment. Patient at high risk for re admission if released today.
[2021-08-03] MEDS: levoTHYROXINE 100mcg tablet PO SCH (07:00)
--- NOTE | 2021-08-03 07:38 | NUR ---
Reassessment: Pt PO 100% recent carb controlled meals w/ period of refusals 07/29-07/30 though overall 75-100% this admit meeting needs. Glu WNL via daily checks per EMR. LBM 08/01, No nutrition intervention at this time. Will continue to monitor. Rec: 1. continue carb controlled diet 2. routine bowel care 3. daily Glu checks given DM hx 4. weekly wts Addendum: 08/03/21 at [address] Amended: Links added.
[2021-08-03 07:41] VITALS: BP 118/73
[2021-08-03] MEDS: aripiprazole 5mg tablet PO SCH (07:49)
[2021-08-03] MEDS: metFORMIN 500mg tablet PO SCH ×2 (07:49→21:48)
[2021-08-03] MEDS: linagliptin 5mg tablet PO SCH (07:49)
[2021-08-03] MEDS: risperiDONE 2mg tablet PO SCH ×2 (07:49→21:47)
[2021-08-03] MEDS: CANAGLIFLOZIN 100 MG PO SCH (07:49)
--- NOTE | 2021-08-03 13:52 | NUR ---
Nursing Progress Note: Legal hold: 5250 Client on involuntary status for GD/DTO Report received from RNGiorgi with use of SBAR: Why are they here: Pt admitted to [place] for Behavioral health on a 5150 for DTO/GD from [facility]. Pt has been experiencing bi-weekly psychotic episodes in which he becomes agitated, yells at neighbors, throws objects and gets in dads face. His sleep has been erratic. When EMS arrived, pt had broken a door, breaking things and screaming. Pt's tox screen is negative. Pt has history of schizoaffective, hypothyroid, diabetic type 2. PT is cooperative with admission process and calm. Assessment What has happened this shift: Pt was up for breakfast. He was cooperative with medications and unit procedures. Pt remains mostly isolative to self and room. Pt denies depression, SI/HI/AH/VH. Pt's FS BG this morning before breakfast was 85. Pt at 100% of breakfast and 75% of lunch. No verbal outbursts,self-injurious, or aggressive behaviors this shift. S/I, H/I: Pt denies A/VH: Pt denies, he did not appear to be responding to internal stimuli. Sleep: Pt slept 9 hours last night per noc shift report, pt naps after meals. ADL's: Independent Group attendance: No Were meds taken: Yes Any med S/E: None noted or reported Mental Status Exam Appearance: Older appearing man with short greying hair and facial stubble dressed in clean, green hospital scrubs. Eye contact: Fair Behavior: Cooperative, out of room for meals, mostly isolative to self, listens to radio headphones. Speech: Clear, audible, minimal Mood: Mild irritability Affect: Irritable, guarded Thought process: Linear Thought Content: He is fine. Cognition: A&O X 3 Insight: Poor Judgment: Poor Interventions PRN's used: None Therapeutic interventions: 1:1 assessment, therapeutic communication, encouraged pt to express his thoughts and feelings,maintained a safe and therapeutic environment, ensured contract for safety, provided clear and simple instructions, encouraged participation on the unit, reality orientation, distraction, and maintained Q 15 minute safety checks. Restraints/seclusion/emergency medication: N/A Justification of Continued Inpatient Treatment: Per Dr. Sanders, pt. continues to to require interruption of current crisis, medication adjustments and a safe and supportive environment.
[2021-08-03 19:08] VITALS: BP 112/69
[2021-08-03] MEDS: VALBENAZINE 80 MG PO SCH (21:47)
[2021-08-03] MEDS: divalproex sod 250mg ER (24-hour) tablet PO SCH (21:48)
[2021-08-03] MEDS: amitriptyline 50mg tablet PO SCH (21:48)
--- NOTE | 2021-08-04 02:24 | NUR ---
leona Progress Note: Legal hold: 5250 Client on involuntary status for GD/DTO Report received from nurse with use of SBAR: CARMITA Alba Why are they here: Pt admitted to [place] for Behavioral health on a 5150 for DTO/GD from [facility]. Pt has been experiencing bi-weekly psychotic episodes in which he becomes agitated, yells at neighbors, throws objects and gets in dads face. His sleep has been erratic. When EMS arrived, pt had broken a door, breaking things and screaming. Pt's tox screen is negative. Pt has history of schizoaffective, hypothyroid, diabetic type 2. PT is cooperative with admission process and calm. Assessment What has happened this shift: Patient spent all day in bed. Patient did not socialize with other patients or participate in snack time. Patient did allow vitals to be taken by techs and patient took all medications without complications S/I, H/I: Denies A/VH: Denies Sleep: Refer to sleep assessment ADL's: Independent Group attendance: NA Were meds taken: Yes Any med S/E: None observed or reported Mental Status Exam Appearance: Disheveled; wearing appropriate unit attire Eye contact: Fair Behavior: Cooperative, isolative Speech: Clear, audible, minimal Mood: Irritable Affect: Constricted Thought process: Poverty of thought with possible thought blocking Thought Content: Unable to assess Cognition: A&O X1 (Pt. would not respond other than to answer name) Insight: Poor Judgment: Poor Interventions PRN's used: None Therapeutic interventions: Introduced self and attempted to establish rapport, maintained a safe and therapeutic environment, ensured contract for safety, provided clear and simple instructions, encouraged participation on the unit, and maintained Q 15min safety checks. Restraints/seclusion/emergency medication: N/A Justification of Continued Inpatient Treatment:Patient is unable to participate in a safe plan of discharge at this point of treatment. Patient needs more time in this controlled environment and medication adjustment. Patient at high risk for re admission if released today.
[2021-08-04] MEDS: risperiDONE 2mg tablet PO SCH ×2 (07:18→20:48)
[2021-08-04] MEDS: linagliptin 5mg tablet PO SCH (07:18)
[2021-08-04] MEDS: levoTHYROXINE 100mcg tablet PO SCH (07:18)
[2021-08-04] MEDS: metFORMIN 500mg tablet PO SCH ×2 (07:19→20:50)
[2021-08-04] MEDS: CANAGLIFLOZIN 100 MG PO SCH (07:19)
[2021-08-04 07:43] VITALS: BP 105/70
[2021-08-04] MEDS ORDERED: ESCITALOPRAM OXALATE 5 MG TABLET PO ONE (09:00)
--- NOTE | 2021-08-04 15:38 | NUR ---
Nursing Progress Note: Legal hold: 5250 Client on involuntary status for GD/DTO Report received from RNGiorgi with use of SBAR: Why they are here: Pt admitted to [place] for Behavioral health on a 5150 for DTO/GD from [facility]. Pt has been experiencing bi-weekly psychotic episodes in which he becomes agitated, yells at neighbors, throws objects and gets in dads face. His sleep has been erratic. When EMS arrived, pt had broken a door, breaking things and screaming. Pt's tox screen is negative. Pt has history of schizoaffective, hypothyroid, diabetic type 2. PT is cooperative with admission process and calm. Assessment What has happened this shift: Patient resting quietly in bed at start of shift. Cooperative but guarded. Isolates in his room often with blanket over his head. Appears irritable when approached by staff. Very little interaction with peers or staff. Eats meals in community room but appears anxious when out of his room AEB glancing around quickly/ stiff posture. S/I, H/I: Denies A/VH: Denies Sleep: 7.25 hours per NOC ADL's: Independent Group attendance: No Were meds taken: Yes Any med S/E: None noted or reported Mental Status Exam Appearance: Older appearing man with short greying hair and facial stubble dressed in clean, green hospital scrubs. Eye contact: Poor Behavior: Cooperative, guarded, isolative Speech: Clear, audible, scant Mood: Fine. Appears anxious Affect: Irritable, guarded Thought process: Linear Thought Content: not able to assess Cognition: A&O X 3 Insight: Poor Judgment: Poor Interventions PRN's used: None Therapeutic interventions: 1:1 assessment, therapeutic communication, encouraged pt to express his thoughts and feelings, maintained a safe and therapeutic environment, ensured contract for safety, provided clear and simple instructions, encouraged participation on the unit, reality orientation, distraction, and maintained Q 15 minute safety checks. Restraints/seclusion/emergency medication: N/A Justification of Continued Inpatient Treatment: Per Dr. Sanders, pt. continues to to require interruption of current crisis, medication adjustments and a safe and supportive environment.
[2021-08-04 19:10] VITALS: BP 113/71
[2021-08-04 19:58] VITALS: BP 113/71
[2021-08-04] MEDS: VALBENAZINE 80 MG PO SCH (20:48)
[2021-08-04] MEDS: divalproex sod 250mg ER (24-hour) tablet PO SCH (20:49)
[2021-08-04] MEDS: amitriptyline 25mg tablet PO SCH (20:49)
--- NOTE | 2021-08-05 01:48 | NUR ---
Nursing Progress Note: Legal hold: 5250 Client on involuntary status for GD/DTO Report received from nurse with use of SBAR: Chalino RN Why are they here: Pt admitted to [place] for Behavioral health on a 5150 for DTO/GD from [facility]. Pt has been experiencing bi-weekly psychotic episodes in which he becomes agitated, yells at neighbors, throws objects and gets in dads face. His sleep has been erratic. When EMS arrived, pt had broken a door, breaking things and screaming. Pt's tox screen is negative. Pt has history of schizoaffective, hypothyroid, diabetic type 2. PT is cooperative with admission process and calm. Assessment What has happened this shift: Patient spent the entire shift isolating in room listening to [id number]. Patient took all medications. Patient didn't participate in snack time or movie with other patients. Patient slept with not difficulty. S/I, H/I: Denies A/VH: Denies Sleep: Refer to sleep assessment ADL's: Independent Group attendance: NA Were meds taken: Yes Any med S/E: None observed or reported Mental Status Exam Appearance: Disheveled; wearing hospital green scrubs Eye contact: Fair Behavior: Cooperative, isolative Speech: Clear, audible, minimal Mood: Irritable Affect: Constricted Thought process: Poverty of thought with possible thought blocking Thought Content: Unable to assess Cognition: A&O X3 Insight: Poor Judgment: Poor Interventions PRN's used: None Therapeutic interventions: Introduced self and attempted to establish rapport, maintained a safe and therapeutic environment, ensured contract for safety, provided clear and simple instructions, encouraged participation on the unit, and maintained Q 15min safety checks. Restraints/seclusion/emergency medication: N/A Justification of Continued Inpatient Treatment:Patient is unable to participate in a safe plan of discharge at this point of treatment. Patient needs more time in this controlled environment and medication adjustment. Patient at high risk for re admission if released today.
[2021-08-05 07:45] VITALS: BP 105/65
[2021-08-05] MEDS: ESCITALOPRAM OXALATE 5 MG TABLET PO SCH (07:58)
[2021-08-05] MEDS: CANAGLIFLOZIN 100 MG PO SCH (07:58)
[2021-08-05] MEDS: risperiDONE 2mg tablet PO SCH ×2 (07:58→20:09)
[2021-08-05] MEDS: levoTHYROXINE 100mcg tablet PO SCH (07:58)
[2021-08-05] MEDS: metFORMIN 500mg tablet PO SCH ×2 (07:58→20:10)
[2021-08-05] MEDS: linagliptin 5mg tablet PO SCH (07:58)
--- NOTE | 2021-08-05 17:23 | NUR ---
Nursing Progress Note: Legal hold: 5250 Client on involuntary status for GD/DTO Report received from RNChalino with use of SBAR: Why they are here: Pt admitted to [place] for Behavioral health on a 5150 for DTO/GD from [facility]. Pt has been experiencing bi-weekly psychotic episodes in which he becomes agitated, yells at neighbors, throws objects and gets in dads face. His sleep has been erratic. When EMS arrived, pt had broken a door, breaking things and screaming. Pt's tox screen is negative. Pt has history of schizoaffective, hypothyroid, diabetic type 2. PT is cooperative with admission process and calm. Assessment What has happened this shift: Resting quietly in bed at start of shift with blanket pulled over his head. Cooperative with medications when awakened. Blood glucose 87. Eats meals in community room but interacts very little with peers. Isolates in his room even when encouraged to come into common areas. Appears anxious AEB affect. Will answer closed ended questions appropriately but does not engage in conversation. Appears occupied by internal stimuli. S/I, H/I: Denies A/VH: Denies but appears occupied by internal stimuli. Sleep: 10 hours per NOC naps frequently throughout the day ADL's: Independent Group attendance: N/A Were meds taken: Yes Any med S/E: None noted or reported Mental Status Exam Appearance: Older appearing man with short greying messy hair and facial stubble dressed in green hospital scrubs. Eye contact: Poor Behavior: Cooperative, guarded, isolative Speech: Clear, audible, scant Mood: Fine. Appears anxious Affect: Appears anxious Thought process: Difficult to assess. Patient does not engage in conversation. Thought Content: Not able to assess. Patient does not engage in conversation. Cognition: A&O X 3 Insight: Poor Judgment: Poor Interventions PRN's used: None Therapeutic interventions: 1:1 assessment, therapeutic communication, encouraged pt to express his thoughts and feelings, maintained a safe and therapeutic environment, ensured contract for safety, provided clear and simple instructions, encouraged participation on the unit, reality orientation, distraction, and maintained Q 15 minute safety checks. Restraints/seclusion/emergency medication: N/A Justification of Continued Inpatient Treatment: Per Dr. Sanders, pt. continues to require interruption of current crisis, medication adjustments and a safe and supportive environment.
[2021-08-05 19:33] VITALS: BP 105/63
[2021-08-05] MEDS: VALBENAZINE 80 MG PO SCH (20:08)
[2021-08-05] MEDS: amitriptyline 25mg tablet PO SCH (20:10)
[2021-08-05] MEDS: divalproex sod 250mg ER (24-hour) tablet PO SCH (20:10)
--- NOTE | 2021-08-06 05:24 | NUR ---
Nursing Progress Note: Legal hold: 5250 Client on involuntary status for GD/DTO Report received from RNAnjali with use of SBAR: Why they are here: Pt admitted to [place] for Behavioral health on a 5150 for DTO/GD from [facility]. Pt has been experiencing bi-weekly psychotic episodes in which he becomes agitated, yells at neighbors, throws objects and gets in dads face. His sleep has been erratic. When EMS arrived, pt had broken a door, breaking things and screaming. Pt's tox screen is negative. Pt has history of schizoaffective, hypothyroid, diabetic type 2. PT is cooperative with admission process and calm. Assessment What has happened this shift: Patient eating dinner in community room at start of shift. Goes immediately back to his room after eating and goes to bed. Irritable when approached for 1:1, but cooperative. Takes medication as ordered. Appears less anxious when left alone. Isolates in room in the evening. Rests quietly in bed through the night. S/I, H/I: Denies A/VH: Denies but appears occupied by internal stimuli. Sleep: see sleep assessment ADL's: Independent Group attendance: N/A Were meds taken: Yes Any med S/E: None noted or reported Mental Status Exam Appearance: Older appearing man with short greying messy hair and facial stubble dressed in green hospital scrubs. Eye contact: Poor Behavior: Cooperative, guarded, isolative Speech: Clear, audible, scant Mood: Appears anxious Affect: Appears anxious Thought process: Difficult to assess. Patient does not engage in conversation. Thought Content: Not able to assess. Patient does not engage in conversation. Cognition: A&O X 3 Insight: Poor Judgment: Poor Interventions PRN's used: None Therapeutic interventions: 1:1 assessment, therapeutic communication, encouraged pt to express his thoughts and feelings, maintained a safe and therapeutic environment, ensured contract for safety, provided clear and simple instructions, encouraged participation on the unit, reality orientation, distraction, and maintained Q 15 minute safety checks. Restraints/seclusion/emergency medication: N/A Justification of Continued Inpatient Treatment: Per Dr. Sanders, pt. continues to require interruption of current crisis, medication adjustments and a safe and supportive environment.
[2021-08-06 07:54] VITALS: BP 104/65
[2021-08-06] MEDS: risperiDONE 2mg tablet PO SCH ×2 (08:23→20:18)
[2021-08-06] MEDS: levoTHYROXINE 100mcg tablet PO SCH (08:23)
[2021-08-06] MEDS: ESCITALOPRAM OXALATE 5 MG TABLET PO SCH (08:23)
[2021-08-06] MEDS: linagliptin 5mg tablet PO SCH (08:23)
[2021-08-06] MEDS: metFORMIN 500mg tablet PO SCH ×2 (08:23→20:18)
[2021-08-06] MEDS: CANAGLIFLOZIN 100 MG PO SCH (08:33)
--- NOTE | 2021-08-06 17:02 | NUR ---
Nursing Progress Note: Legal hold: 5250 Client on involuntary status for GD/DTO Report received from nurse with use of SBAR: CARMITA Russell Why are they here: Pt admitted to [place] for Behavioral health on a 5150 for DTO/GD from [facility]. Pt has been experiencing bi-weekly psychotic episodes in which he becomes agitated, yells at neighbors, throws objects and gets in dads face. His sleep has been erratic. When EMS arrived, pt had broken a door, breaking things and screaming. Pt's tox screen is negative. Pt has history of schizoaffective, hypothyroid, diabetic type 2. PT is cooperative with admission process and calm. Assessment What has happened this shift: Patient observed listening to music in his room at the beginning of shift. Cooperative with care; continues to appear irritable when real estate underwriter talks to him. Patient is compliant with all medication. He denies SI, HI, A/VH. Patient gives one word answers and has no forward thought process with this real estate underwriter. Juan only comes out of his room for meals and snack and retreats quickly back to his room where he is seen resting under covers but is easily aroused. Morning B/S discontinued today per Dr. Sanders, patient sugars are well controlled with medicationa dn diet 87-100 over the past week or so. S/I, H/I: Denies A/VH: Denies Sleep: rested quietly in room all day ADL's: Independent Group attendance: no Were meds taken: Yes Any med S/E: None observed or reported Mental Status Exam Appearance: Disheveled; wearing appropriate unit attire Eye contact: Fair Behavior: Cooperative, isolative Speech: Clear, audible, minimal Mood: Irritable Affect: Constricted Thought process: Poverty of thought with possible thought blocking Thought Content: Unable to assess Cognition: A&O X1 (Pt. would not respond other than to answer name) Insight: Poor Judgment: Poor Interventions PRN's used: None Therapeutic interventions: Introduced self and attempted to establish rapport, maintained a safe and therapeutic environment, ensured contract for safety, provided clear and simple instructions, encouraged participation on the unit, and maintained Q 15min safety checks. Restraints/seclusion/emergency medication: N/A Justification of Continued Inpatient Treatment:Patient is unable to participate in a safe plan of discharge at this point of treatment. Per PSA patient lives with 88 year old father. Patient needs more time in this controlled environment and medication adjustment. Patient at high risk for re admission if released today.
[2021-08-06 20:16] VITALS: BP 107/66
[2021-08-06] MEDS: divalproex sod 250mg ER (24-hour) tablet PO SCH (20:18)
[2021-08-06] MEDS: VALBENAZINE 80 MG PO SCH (20:19)
--- NOTE | 2021-08-07 00:10 | NUR ---
Nursing Progress Note: Legal hold: 5250 Client on involuntary status for GD/DTO Report received from CARMITA Alba with use of SBAR: Why they are here: Pt admitted to [place] [facility] on a 5150 for DTO/GD from [facility]. Pt has been experiencing bi-weekly psychotic episodes in which he becomes agitated, yells at neighbors, throws objects and gets in dads face. His sleep has been erratic. When EMS arrived, pt had broken a door, breaking things and screaming. Pt's tox screen is negative. Pt has history of schizoaffective, hypothyroid, diabetic type 2. PT is cooperative with admission process and calm. Assessment What has happened this shift: The patient had just finished his dinner meal, and went back to his room and climbed in bed. He was still awake, but chose not answer any questions. The patient did not get up for snack time, and was hungry, so sandwich and chips provided with HS meds. The patient was not irritable and thanked this financial underwriter for food and meds. S/I, H/I: Denies A/VH: Denies but appears occupied by internal stimuli. Sleep: see sleep assessment ADL's: Independent Group attendance: N/A Were meds taken: Yes Any med S/E: None reported or observed Mental Status Exam Appearance: Older appearing man with short greying messy hair and facial stubble dressed in green hospital scrubs. Eye contact: Poor Behavior: Cooperative, guarded, isolative Speech: Clear, audible, scant Mood: Euthymic Affect: Restricted. Thought process: Difficult to assess. Patient does not engage in conversation. Thought Content: Not able to assess. Patient does not engage in conversation. Cognition: A&O X 3 Insight: Poor Judgment: Poor Interventions PRN's used: None Therapeutic interventions: 1:1 assessment, therapeutic communication, encouraged pt to express his thoughts and feelings, maintained a safe and therapeutic environment, ensured contract for safety, provided clear and simple instructions, encouraged participation on the unit, reality orientation, distraction, and maintained Q 15 minute safety checks. Restraints/seclusion/emergency medication: N/A Justification of Continued Inpatient Treatment: Per Dr. Sanders, pt. continues to require interruption of current crisis, medication adjustments and a safe and supportive environment.
[2021-08-07] MEDS: levoTHYROXINE 100mcg tablet PO SCH (07:42)
[2021-08-07] MEDS: risperiDONE 2mg tablet PO SCH ×3 (07:42→21:08)
[2021-08-07] MEDS: linagliptin 5mg tablet PO SCH (07:42)
[2021-08-07] MEDS: metFORMIN 500mg tablet PO SCH ×2 (07:43→21:01)
[2021-08-07] MEDS: CANAGLIFLOZIN 100 MG PO SCH (07:43)
[2021-08-07 08:00] VITALS: BP 109/62
[2021-08-07] MEDS ORDERED: ESCITALOPRAM OXALATE 5 MG TABLET PO SCH (08:00)
--- NOTE | 2021-08-07 17:13 | NUR ---
Nursing Progress Note: Legal hold: 5250 Client on involuntary status for GD/DTO Report received from nurse with use of SBAR: CARMITA Vernon Why are they here: Pt admitted to [place] for Behavioral health on a 5150 for DTO/GD from [facility]. Pt has been experiencing bi-weekly psychotic episodes in which he becomes agitated, yells at neighbors, throws objects and gets in dads face. His sleep has been erratic. When EMS arrived, pt had broken a door, breaking things and screaming. Pt's tox screen is negative. Pt has history of schizoaffective, hypothyroid, diabetic type 2. PT is cooperative with admission process and calm. Assessment What has happened this shift: Patient observed listening to music in his room at the beginning of shift. Cooperative with care; continues to appear tense when talking with this designer writer although answered more questions today than he has in the past. Patient is compliant with all medication. He denies SI, HI, A/VH. Patient gives one word answers and has no forward thought process with this designer writer. Juan ate all meals in the great room and attended group this afternoon with some prompting by this designer writer. Patient mentioned that he wanted to go home in a couple of days, this designer writer explained that he should get out of his room and participate in the unit, go to group, try to stay out of his room for a little while. Patient did just that, art group and stayed the entire time. Today patients father called and stated that patient can come home when stable on medication and agrees to stay on meds and not have outbursts. Patient is aware of these wishes. S/I, H/I: Denies A/VH: Denies Sleep: rested quietly in room all day ADL's: Independent Group attendance: no Were meds taken: Yes Any med S/E: None observed or reported Mental Status Exam Appearance: Disheveled; wearing appropriate unit attire Eye contact: Fair Behavior: Cooperative, isolative Speech: Clear, audible, minimal Mood: Irritable Affect: Constricted Thought process: Poverty of thought with possible thought blocking Thought Content: Unable to assess Cognition: A&O Insight: Poor Judgment: Poor Interventions PRN's used: None Therapeutic interventions: Introduced self and attempted to establish rapport, maintained a safe and therapeutic environment, ensured contract for safety, provided clear and simple instructions, encouraged participation on the unit, and maintained Q 15min safety checks. Restraints/seclusion/emergency medication: N/A Justification of Continued Inpatient Treatment:Patient is unable to participate in a safe plan of discharge at this point of treatment. Per PSA patient lives with 88 year old father. Patient needs more time in this controlled environment and medication adjustment.
[2021-08-07 19:29] VITALS: BP 125/77
[2021-08-07] MEDS: divalproex sod 250mg ER (24-hour) tablet PO SCH (21:02)
[2021-08-07] MEDS: magnesium hydroxide 30ml (MOM) UD suspension PO PRN (21:03)
[2021-08-07] MEDS: VALBENAZINE 80 MG PO SCH (21:03)
--- NOTE | 2021-08-08 02:55 | NUR ---
Nursing Progress Note: Legal hold: 5250 Client on involuntary status for GD/DTO Report received from CARMITA Alba with use of SBAR: Why they are here: Pt admitted to [place] for Behavioral health on a 5150 for DTO/GD from [facility]. Pt has been experiencing bi-weekly psychotic episodes in which he becomes agitated, yells at neighbors, throws objects and gets in dads face. His sleep has been erratic. When EMS arrived, pt had broken a door, breaking things and screaming. Pt's tox screen is negative. Pt has history of schizoaffective, hypothyroid, diabetic type 2. PT is cooperative with admission process and calm. Assessment What has happened this shift: Patient was quiet and kept to himself spending most of the shift in his room. Patient finally came out and spent some time in the sitting room watching tv before returning back to bed. Patient took all medications and PRN milk of mag to help with constipation. S/I, H/I: Denies A/VH: Denies but appears occupied by internal stimuli. Sleep: see sleep assessment ADL's: Independent Group attendance: N/A Were meds taken: Yes Any med S/E: None reported or observed Mental Status Exam Appearance: Older appearing man with short greying messy hair and facial stubble dressed in green hospital scrubs. Eye contact: Poor Behavior: Cooperative, guarded, isolative Speech: Clear, audible, scant Mood: Euthymic Affect: Restricted. Thought process: Difficult to assess. Patient does not engage in conversation. Thought Content: Not able to assess. Patient does not engage in conversation. Cognition: A&O X 3 Insight: Poor Judgment: Poor Interventions PRN's used: None Therapeutic interventions: 1:1 assessment, therapeutic communication, encouraged pt to express his thoughts and feelings, maintained a safe and therapeutic environment, ensured contract for safety, provided clear and simple instructions, encouraged participation on the unit, reality orientation, distraction, and maintained Q 15 minute safety checks. Restraints/seclusion/emergency medication: N/A Justification of Continued Inpatient Treatment: Per Dr. Sanders, pt. continues to require interruption of current crisis, medication adjustments and a safe and supportive environment.
[2021-08-08] MEDS: CANAGLIFLOZIN 100 MG PO SCH (08:30)
[2021-08-08] MEDS: linagliptin 5mg tablet PO SCH (08:31)
[2021-08-08] MEDS: metFORMIN 500mg tablet PO SCH ×2 (08:31→20:37)
[2021-08-08] MEDS: levoTHYROXINE 100mcg tablet PO SCH (08:31)
[2021-08-08] MEDS: ESCITALOPRAM OXALATE 5 MG TABLET PO SCH (08:33)
[2021-08-08 08:39] VITALS: BP 111/69
--- NOTE | 2021-08-08 14:07 | NUR ---
DISCHARGE PLAN Met with Juan to discuss his discharge plan. Offered [facility] as an option and he declined. He gave process description writer verbal permission to call his dad, Chilango (ph# [phone]), to ensure he can return home. Spoke to Chilango who reported Juan can return home, however, he will need a ride. Informed Chilango [facility] can offer transportation home. Scheduled Juan's follow up at [facility] for 08/16/[address] Sanders plans to discharge Juan tomorrow. [facility] [employer] will call Chilango to inform him tomorrow when Juan is discharged. EILEEN Lundy
--- NOTE | 2021-08-08 16:31 | NUR ---
Nursing Progress Note: Legal hold: 5250 Client on involuntary status for GD/DTO Report received from CARMITA Vernon with use of SBAR: Why they are here: Pt admitted to [place] for Behavioral health on a 5150 for DTO/GD from [facility]. Pt has been experiencing bi-weekly psychotic episodes in which he becomes agitated, yells at neighbors, throws objects and gets in dads face. His sleep has been erratic. When EMS arrived, pt had broken a door, breaking things and screaming. Pt's tox screen is negative. Pt has history of schizoaffective, hypothyroid, diabetic type 2. PT is cooperative with admission process and calm. Assessment What has happened this shift: Patient resting quietly in bed at start of shift. Eats meals in community room but does not interact with peers. Guarded; answers direct closed ended questions but does not engage in conversation. Patient states he is feeling fine about upcoming discharge. Isolates in his room often with blanket over his head. Noted to occasionally come into common areas but does not stay long. Appears anxious at times; walks quickly, glances around and behind him while walking. Participates in second group of the day. Cooperative with medications and 1:1 assessment. S/I, H/I: Denies A/VH: Denies Sleep: 8.75hrs per NOC. Naps frequently throughout the day. ADL's: Independent Group attendance: Yes Were meds taken: Yes Any med S/E: None reported or observed Mental Status Exam Appearance: Older appearing man with short greying messy hair and facial stubble dressed in green hospital scrubs. Eye contact: Poor Behavior: Cooperative, guarded, isolative Speech: Clear, audible, scant Mood: Fine. Appears depressed Affect: Depressed Thought process: Difficult to assess. Patient does not engage in conversation. Thought Content: Not able to assess. Patient does not engage in conversation. Cognition: A&O X 3 Insight: Poor Judgment: Poor Interventions PRN's used: None Therapeutic interventions: 1:1 assessment, therapeutic communication, encouraged pt to express his thoughts and feelings, maintained a safe and therapeutic environment, ensured contract for safety, provided clear and simple instructions, encouraged participation on the unit, reality orientation, distraction, and maintained Q 15 minute safety checks. Restraints/seclusion/emergency medication: N/A Justification of Continued Inpatient Treatment: Per Dr. Sanders, pt. continues to require interruption of current crisis, medication adjustments and a safe and supportive environment.
[2021-08-08 19:31] VITALS: BP 114/69
[2021-08-08] MEDS: VALBENAZINE 80 MG PO SCH (20:37)
[2021-08-08] MEDS: risperiDONE 2mg tablet PO SCH (20:39)
[2021-08-08] MEDS: divalproex sod 250mg ER (24-hour) tablet PO SCH (20:39)
--- NOTE | 2021-08-09 03:39 | NUR ---
Nursing Progress Note: Legal hold: 5250 Client on involuntary status for GD/DTO Report received from CARMITA Alba with use of SBAR: Why they are here: Pt admitted to [place] for Behavioral health on a 5150 for DTO/GD from [facility]. Pt has been experiencing bi-weekly psychotic episodes in which he becomes agitated, yells at neighbors, throws objects and gets in dads face. His sleep has been erratic. When EMS arrived, pt had broken a door, breaking things and screaming. Pt's tox screen is negative. Pt has history of schizoaffective, hypothyroid, diabetic type 2. PT is cooperative with admission process and calm. Assessment What has happened this shift: Patient finally came out of his room and spent time in the activities room and in the sitting room watching tv. Patient also socialized with staff and other patients. Patient took all medications without issues or questions and returned back to room. Patient slept without difficulty. S/I, H/I: Denies A/VH: Denies but appears occupied by internal stimuli. Sleep: see sleep assessment ADL's: Independent Group attendance: N/A Were meds taken: Yes Any med S/E: None reported or observed Mental Status Exam Appearance: Older appearing man with short greying messy hair and facial stubble dressed in green hospital scrubs. Eye contact: Poor Behavior: Cooperative, guarded, isolative Speech: Clear, audible, scant Mood: Euthymic Affect: Restricted. Thought process: Difficult to assess. Patient does not engage in conversation. Thought Content: Not able to assess. Patient does not engage in conversation. Cognition: A&O X 3 Insight: Poor Judgment: Poor Interventions PRN's used: None Therapeutic interventions: 1:1 assessment, therapeutic communication, encouraged pt to express his thoughts and feelings, maintained a safe and therapeutic environment, ensured contract for safety, provided clear and simple instructions, encouraged participation on the unit, reality orientation, distraction, and maintained Q 15 minute safety checks. Restraints/seclusion/emergency medication: N/A Justification of Continued Inpatient Treatment: Per Dr. Sanders, pt. continues to require interruption of current crisis, medication adjustments and a safe and supportive environment.
[2021-08-09] MEDS ORDERED: TRAZ-251 PO (07:44)
[2021-08-09] MEDS ORDERED: ESCI20TA39 PO (07:44)
[2021-08-09] MEDS ORDERED: NICO-668 BC (07:44)
[2021-08-09] MEDS ORDERED: RISP3TAB63 PO (07:44)
[2021-08-09] MEDS ORDERED: RISP2TAB85 PO (07:44)
[2021-08-09] MEDS ORDERED: DIVA500T9 PO (07:44)
[2021-08-09] MEDS: levoTHYROXINE 100mcg tablet PO SCH (07:48)
[2021-08-09] MEDS: linagliptin 5mg tablet PO SCH (07:48)
[2021-08-09] MEDS: CANAGLIFLOZIN 100 MG PO SCH (07:48)
[2021-08-09] MEDS: ESCITALOPRAM OXALATE 5 MG TABLET PO SCH (07:49)
[2021-08-09] MEDS: metFORMIN 500mg tablet PO SCH (07:49)
[2021-08-09] MEDS: risperiDONE 2mg tablet PO SCH (07:54)
[2021-08-09 08:00] VITALS: BP 96/57
--- NOTE | 2021-08-09 12:57 | NUR ---
Discharge Note: Discharge plan reviewed with patient including smoking cessation information. Verbalizes understanding and states he feels, Really good, about leaving today and his follow up plan. No s/sx acute distress noted. Escorted out by staff and picked up by [facility] sales route driver helper to be taken back to his residence where he lives with his Dad. Discharged with all of his personal belongings at 09:15 with the following instructions: Follow-Up: Patient has been scheduled/referred to the following providers for post-hospital discharge and aftercare treatment. Psychiatrist: Appointment: 08/16/21 at [address] Butler [facility] [address] [facility] [place] Primary Care Provider: [facility] Business Office Technician: Adelaida Discharge Address: [address] [place], [place] Transportation: [facility] Patient given community crisis services information and National suicide hotline handout. Resources for education regarding mental illness: [address] [address] For urgent mental health crisis needs please contact Mobile Crisis Outreach Team Friday through Friday 8:30am to 5:00pm. . Mobile Crisis Outreach Team [address] [place] [id number] Urgent Out-patient Mental Health Services 365 Days A Year: [facility] [address] [place] [id number] Hours: Mon thru Fri 12pm-9pm Weekends 11am-9pm
== END 2021-08-09 09:24 | disposition home or self-care (01) | DRG 885 ==
LOC: ADULT MH 22:15 → UNDOADMIN 22:15 → ADULT MH 07-25 09:45
PROVIDERS: ADMIT Psychiatry & Neurology Psychiatry; ATTEND Psychiatry & Neurology Psychiatry
DX: F25.0 Schizoaffective disorder, bipolar type (principal); E03.9 Hypothyroidism, unspecified; E11.9 Type 2 diabetes mellitus without complications; G24.01 Drug induced subacute dyskinesia; F32.9 Major depressive disorder, single episode, unspecified; I10 Essential (primary) hypertension; Z79.84 Long term (current) use of oral hypoglycemic drugs; Z79.899 Other long term (current) drug therapy; Z56.0 Unemployment, unspecified
CPT/HCPCS: 36415; 80053; 80061; 82948; 83036; 83735; 84100; 84439; 84443; 85025; 87081

== ENCOUNTER 2021-09-29 15:54 | Emergency (ER) | payer BC, MEDICAID ==
[~2021-09-29] VITALS: Ht 177.8 cm; Wt 68.0 kg
[~2021-09-29 15:54] MED LIST changes: -AMA100C PO; -ARIP5TAB14 PO; +CANA100T PO; -CLON-528 PO; +DIVA500T9 PO; +ESCI20TA39 PO; +LEVO100T9 PO; -LEVO200T8 PO; -LITH300T3 PO; +METF-438 PO; -MIRT45TA83 PO; +NICO-668 BC; -PYRI100T10 PO; +RISP2TAB85 PO; +RISP3TAB63 PO; +SITA100T15 PO; +TRAZ-251 PO; +VALB80CA PO
[2021-09-29 15:57] VITALS: BP 125/68
== END 2021-09-29 17:22 | disposition home or self-care (01) ==
LOC: ER 15:54
DX: M79.661 Pain in right lower leg (principal); R26.89 Other abnormalities of gait and mobility; E11.9 Type 2 diabetes mellitus without complications; E03.9 Hypothyroidism, unspecified; Z79.899 Other long term (current) drug therapy
CPT/HCPCS: 99283